=== PATIENT | male | born 1985 | race Caucasian/White ===

== ENCOUNTER → 2020-03-10 | Outpatient (CLI) | payer MEDICARE, OTHER ==
[~2020-03-10] MED LIST: BUSPIRONE HCL5 MG PO; DOCUSATE SODIU100 MG PO; DULOXETINE HCL30 MG PO; ELIQUIS 2.5 MG2.5 MG PO; FERROUS SULFAT325 M2 PO; GABAPENTIN600 MG PO; HYDROCODON-ACE1 EAC4 PO; MELOXICAM15 MG PO; PERCOCET 10-321 EACH PO; PROTONIX 40 MG40 M1 PO; QUETIAPINE FUMA50 MG PO; SERTRALINE HCL100 MG PO
[2020-03-10 11:25] LABS: HEMOGLOBIN 14.9 gm/dl (14.0-17.5); RED BLOOD COUNT 4.79 M/UL (4.20-5.50); WHITE BLOOD COUNT 7.8 K/UL (4.5-11.0)
[2020-03-10 11:38] LABS: BUN/CREATININE RATIO 10 (0-10)
== END ==
LOC: OPSV2 10:00 → EDSTATUS 10:00 → OPSV2 10:25
PROVIDERS: Orthopaedic Surgery
DX: Z01.818 Encounter for other preprocedural examination (principal); M87.852 Other osteonecrosis, left femur; R94.31 Abnormal electrocardiogram [ECG] [EKG]; I49.8 Other specified cardiac arrhythmias
CPT/HCPCS: 80048; 85027; 87081; 93005

== ENCOUNTER → 2020-03-23 | Outpatient (CLI) | payer MEDICARE, OTHER ==
[2020-03-23 12:09] LABS: BUN/CREATININE RATIO 13 (0-10)
== END ==
LOC: LAB 11:08
PROVIDERS: Orthopaedic Surgery
DX: Z01.812 Encounter for preprocedural laboratory examination (principal); M87.852 Other osteonecrosis, left femur
CPT/HCPCS: 36415; 80048; 86850; 86900; 86901

== ENCOUNTER 2020-03-24 08:45 | Observation (INO) | payer MEDICARE, OTHER ==
[~2020-03-24] VITALS: Ht 170.2 cm; Wt 54.4 kg
[2020-03-24] MEDS ORDERED: GABAPENTIN600 MG PO (09:52)
[2020-03-24] MEDS ORDERED: QUETIAPINE FUMA50 MG PO (09:53)
[2020-03-24] MEDS ORDERED: HYDROCODON-ACE1 EAC4 PO (09:53)
[2020-03-24] MEDS ORDERED: BUSPIRONE HCL5 MG PO (09:53)
[2020-03-24] MEDS ORDERED: DULOXETINE HCL30 MG PO (09:54)
[2020-03-24] MEDS ORDERED: MELOXICAM15 MG PO (09:54)
[2020-03-24] MEDS ORDERED: SERTRALINE HCL100 MG PO (09:54)
[2020-03-24] MEDS ORDERED: PROTONIX 40 MG40 M1 PO (09:55)
[2020-03-24] MEDS ORDERED: PERCOCET 10-321 EACH PO (13:57)
[2020-03-25 07:03] LABS: HEMOGLOBIN 9.8 gm/dl (14.0-17.5); RED BLOOD COUNT 3.09 M/UL (4.20-5.50); WHITE BLOOD COUNT 10.4 K/UL (4.5-11.0)
[2020-03-25 07:19] LABS: BUN/CREATININE RATIO 14 (0-10)
[2020-03-26 06:22] LABS: HEMOGLOBIN 9.2 gm/dl (14.0-17.5); RED BLOOD COUNT 2.91 M/UL (4.20-5.50)
[2020-03-26 06:27] LABS: WHITE BLOOD COUNT 13.9 K/UL (4.5-11.0)
[2020-03-26 06:45] LABS: BUN/CREATININE RATIO 14 (0-10)
[2020-03-27 05:45] LABS: HEMOGLOBIN 8.5 gm/dl (14.0-17.5); RED BLOOD COUNT 2.71 M/UL (4.20-5.50); WHITE BLOOD COUNT 10.7 K/UL (4.5-11.0)
[2020-03-27 05:58] LABS: BUN/CREATININE RATIO 14 (0-10)
[2020-03-28 06:29] LABS: HEMOGLOBIN 8.6 gm/dl (14.0-17.5); RED BLOOD COUNT 2.73 M/UL (4.20-5.50); WHITE BLOOD COUNT 9.5 K/UL (4.5-11.0)
[2020-03-28 06:59] LABS: BUN/CREATININE RATIO 19 (0-10)
[2020-03-28] MEDS ORDERED: ELIQUIS 2.5 MG2.5 MG PO (16:01)
[2020-03-28] MEDS ORDERED: DOCUSATE SODIU100 MG PO (16:01)
[2020-03-28] MEDS ORDERED: FERROUS SULFAT325 M2 PO (16:01)
--- NOTE | 2020-03-28 16:24 | NUR ---
[facility] FOR A HOME HEALTH REFERRAL.
--- NOTE | 2020-03-28 17:35 | NUR ---
PATIENT HAVE SPOKEN WITH MD AND REQUESTING TO GO HOME TODAY. CM HAS NOT COMPLETED HIS HOME HEALTH SERVICES REQUIREMENTS. MD DISCHARGE PATIENT TODAY. SPOKEN TO [facility] AND INFORMED THEM THAT PATIENT IS DISCHARGE TODAY AND WILL SEND ALL PAPERS NEEDED BY [facility] DEPARTMENT CHAIR IN THE MORNING. INSTRUCTED PATIENT OF THE ABOVE AND AGREEABLE. PATIENT STATED I WANT TO GO HOME. PROVIDED ALL WOUND CARE INSTRUCTIONS AND SUPPLIES.
--- NOTE | 2020-03-28 18:23 | NUR ---
NOTIFIED DR. CUEVAS AND DR. REYEZ OF PATIENT PHARM[facility] CLOSE AND WILL NOT OPEN TILL MONDAY. DISCUSSED THAT PATIENT JUST INFORMED A WHILE AGO AND THAT WILL NOT HAVE ANY OTHER WAY TO GET HIS PAIN MEDICINE. RECEIVED ORDER TO CANCEL D/C TODAY
--- NOTE | 2020-03-29 13:54 | NUR ---
WAS INFORMED THAT PATIENT PHARMACY HAD ISSUED PAIN MEDICINE ON FEBRUARY AND MARCH ENOUGH FOR PATIENT TO HAVE ADEQUATE PAIN MEDICATIONS. THE ABOVE WAS PROVIDED TO ME BY RUDY( HOSP PA). INFORMED PATIENT OF THE ABOVE AND THAT WILL NOT PROVIDE ANY NEW PAIN MEDICINE CALLED IN AT PHARMACY AND HE ACKNOWLEDGED.
== END 2020-03-29 16:27 | disposition home or self-care (01) ==
LOC: OR 08:45 → EDSTATUS 11:30 → M/S 15:43 → OR 15:44 → M/S 15:44
PROVIDERS: Internal Medicine; ADMIT Orthopaedic Surgery
PROC: 0SRB039 Replacement of Left Hip Joint with Ceramic Synthetic Substitute, Cemented, Open Approach (ICD-10-PCS; principal; 2020-03-24 11:30)
DX: M87.252 Osteonecrosis due to previous trauma, left femur (principal); M12.0 Chronic postrheumatic arthropathy [Jaccoud]; R00.0 Tachycardia, unspecified; D62 Acute posthemorrhagic anemia; J45.909 Unspecified asthma, uncomplicated; F17.210 Nicotine dependence, cigarettes, uncomplicated; K21.9 Gastro-esophageal reflux disease without esophagitis; G89.29 Other chronic pain; M54.9 Dorsalgia, unspecified; F32.9 Major depressive disorder, single episode, unspecified; Z79.899 Other long term (current) drug therapy; Z79.891 Long term (current) use of opiate analgesic
CPT/HCPCS: 36415; 72170; 80048; 82607; 82728; 82746; 83540; 83550; 84439; 84443; 85025; 85027; 87070; 87205; 93005; 97110-GP-CQ; 97116-GP-CQ; 97162; 97166; 97530-GP-CQ; 97535; C1713; C1776; G0378; J0690; J1170; J1644; J1885; J2001; J2250; J2270; J2704; J2710; J3370; J7050; J7120

== ENCOUNTER → 2020-08-05 | Outpatient (CLI) | payer MEDICARE, OTHER | LOC: LAB 08:01 | DX: I45.6 Pre-excitation syndrome (principal); R00.2 Palpitations; J43.9 Emphysema, unspecified | CPT/HCPCS: 36415; 71046; 80048; 85025 ==

== ENCOUNTER → 2020-08-06 | Outpatient (CLI) | payer MEDICARE, OTHER ==
[2020-08-05 09:57] LABS: RED BLOOD COUNT 4.94 M/UL (4.20-5.50)
[2020-08-05 10:21] LABS: BUN/CREATININE RATIO 21 (0-10)
== END ==
LOC: ECHO 12:00
PROVIDERS: Internal Medicine Cardiovascular Disease
DX: R00.2 Palpitations (principal); I45.6 Pre-excitation syndrome; I07.1 Rheumatic tricuspid insufficiency
CPT/HCPCS: ECHO; 71046; 80048; 85025; 93306

== ENCOUNTER 2020-08-07 09:31 | Outpatient (CLI) | payer MEDICARE, OTHER ==
[~2020-08-07] VITALS: Ht 172.7 cm; Wt 52.2 kg
[2020-08-07] MEDS ORDERED: HYDROCODON-ACE1 EAC4 PO (10:02)
== END 2020-08-08 10:59 | disposition home or self-care (01) ==
LOC: CATH 09:31 → PROG CARE 18:35 → CATH 08-08 10:59
DX: I45.6 Pre-excitation syndrome (principal); M87.059 Idiopathic aseptic necrosis of unspecified femur; K21.9 Gastro-esophageal reflux disease without esophagitis; D50.9 Iron deficiency anemia, unspecified; R00.0 Tachycardia, unspecified; F17.210 Nicotine dependence, cigarettes, uncomplicated; Z79.891 Long term (current) use of opiate analgesic; Z79.899 Other long term (current) drug therapy
CPT/HCPCS: 85347; 93005; 93613; 93621; 99152; 99153; C1730; C1733; C1766; J1200; J1644; J2250; J3010; J7050; Q9965